=== PATIENT | male | born 1965 | race Caucasian/White ===

== ENCOUNTER 2020-05-10 17:57 | Inpatient (IN) | payer BC ==
[~2020-05-10] VITALS: Ht 177.8 cm; Wt 100.2 kg
[2020-05-10] VITALS (84 sets, daily range): BP systolic 94–100; BP diastolic 59–66; PULSE 84–87; TEMP 98.4; O2SAT 89–97
[2020-05-10] MEDS ORDERED: PRINIVIL20 MG PO (18:11)
[2020-05-10] MEDS ORDERED: FLONASE NASAL S16 GM NS (18:11)
[2020-05-10] MEDS ORDERED: AFRIN 15 ML15 ML NS (18:11)
[2020-05-10] MEDS ORDERED: ZOCOR 40MG40 MG PO (18:11)
[2020-05-10] MEDS ORDERED: SINGULAIR 110 MG/TAB PO (18:12)
[2020-05-10] MEDS ORDERED: PROAIR HFA0.09 MG/AC IH (18:12)
[2020-05-10] MEDS ORDERED: FLEXERIL 1010 MG/TAB PO (18:12)
[2020-05-10] MEDS ORDERED: PRILOSEC 20MG20 MG PO (18:13)
[2020-05-10] MEDS ORDERED: COSOPT 2%-0.5%10 ML OU (18:13)
[2020-05-10] MEDS ORDERED: VOLTAREN 75 DR75 MG PO (18:13)
[2020-05-10 18:57] LABS: COLLECTION METHOD CLEAN CATCH
[2020-05-10 19:02] LABS: BASO % 0.3 % (0.0-2.0); EOS % 0.2 % (0-4.0); GRAN # 5.6 (1.4-6.5); GRAN % 89.3 % (42.2-75.2); HEMATOCRIT 41.3 % (42.0-52.0); HEMOGLOBIN 14.1 g/dl (13.5-18.0); LYMPH # 0.4 (1.2-3.4); MEAN CELL VOLUME 83 fl (80.0-100.0); MEAN CORPUSCULAR HEMOGLOBIN 29 pg (27.0-31.0); MEAN CORPUSCULAR HGB CONC 34 g/dl (33.0-37.0); MEAN PLATELET VOLUME 9.4 fl (7.4-10.4); MONO # 0.2 (0.1-0.6); MONO % 2.9 % (1.7-9.3); PLATELET COUNT 230 K/mm3 (130-400); RED BLOOD COUNT 4.95 M/mm3 (4.20-5.60); REDCELL DISTRIBUTION WIDTH-CV 12.3 % (11.5-14.5)
[2020-05-10 19:11] LABS: MUCOUS Present /lpf; PH 5 (5-8); SQUAMOUS EPITHELIAL None Seen /hpf; URINE APPEARANCE Hazy; URINE BACTERIA None Seen /hpf; URINE BILIRUBIN Negative (NEGATIVE); URINE BLOOD Negative (NEGATIVE); URINE COLOR Yellow; URINE GLUCOSE Negative (NEGATIVE); URINE KETONE Negative (NEGATIVE); URINE LEUKOCYTE ESTERASE Negative (NEGATIVE); URINE NITRATE Negative (NEGATIVE); URINE PROTEIN(semi-quant) 1+ (NEGATIVE); URINE RBC 0-2 /hpf
[2020-05-10 19:14] LABS: ALBUMIN 4.4 gm/dL (3.5-5.0); BILIRUBIN,TOTAL 0.8 mg/dL (0.0-1.0); CALCIUM 9.2 mg/dL (8.4-10.2); CREATININE, serum 1.41 (0.66-1.25); POTASSIUM 3.7 mmol/L (3.4-5.0); TOTAL PROTEIN 8.4 gm/dL (6.4-8.2)
[2020-05-10 20:27] LABS: INR 1.2 (0.8-3.0); PROTHROMBIN TIME 13.5 SECONDS (9.7-12.8)
[2020-05-10 22:54] LABS: ARTERIAL BLD GAS O2 SATURATION 95.7 % (92-100); ARTERIAL BLD GAS TCO2 CT 20.7; ARTERIAL BLOOD GAS BASE EXCESS -3.9 (-2-2); ARTERIAL BLOOD GAS HCO3 19.7 meq/L (22-26); ARTERIAL BLOOD GAS PO2 76.1 mmHg (80-100); ARTERIAL BLOOD GAS pH 7.41 (7.35-7.45)
[2020-05-11] VITALS (688 sets, daily range): BP systolic 90–137; BP diastolic 58–81; PULSE 67–104; TEMP 98.1–101.6; O2SAT 84–98
--- NOTE | 2020-05-11 | NUR ---
PATIENT COMPLAINS OF RIGHT SHOULDER PAIN, AND BURNING NEAR IV SITE, POTASSIUM STOPPED FOR 20 MINUTES AND RESTARTED AT A SLOWER RATE PAIN MEDS ADMINISTERED
--- NOTE | 2020-05-11 04:08 | NUR ---
PATIENT ASLEEP AWAKENS EASILY TO EXTRENAL STIMULI, LIKE FOOTSTEPS IN ROOM, DENIES DISCOMFORT AND PROMPTLY BACK TO SLEEP
[2020-05-11 05:28] LABS: BASO % 0.3 % (0.0-2.0); EOS % 0.2 % (0-4.0); GRAN # 5.6 (1.4-6.5); GRAN % 84.9 % (42.2-75.2); LYMPH # 0.5 (1.2-3.4); LYMPH % 7.2 % (20.0-51.0); MEAN CELL VOLUME 84 fl (80.0-100.0); MEAN CORPUSCULAR HGB CONC 33 g/dl (33.0-37.0); MEAN PLATELET VOLUME 9.1 fl (7.4-10.4); MONO # 0.5 (0.1-0.6); MONO % 6.9 % (1.7-9.3); PLATELET COUNT 182 K/mm3 (130-400); RED BLOOD COUNT 4.34 M/mm3 (4.20-5.60); REDCELL DISTRIBUTION WIDTH-CV 12.5 % (11.5-14.5)
[2020-05-11 05:35] LABS: HEMOGLOBIN 12.1 g/dl (13.5-18.0); MEAN CORPUSCULAR HEMOGLOBIN 28 pg (27.0-31.0)
[2020-05-11 05:36] LABS: HEMATOCRIT 36.5 % (42.0-52.0)
[2020-05-11 05:37] LABS: ALBUMIN 3.5 gm/dL (3.5-5.0); BILIRUBIN,TOTAL 0.9 mg/dL (0.0-1.0); CALCIUM 8.2 mg/dL (8.4-10.2); CREATININE, serum 1.03 (0.66-1.25); POTASSIUM 4.1 mmol/L (3.4-5.0); TOTAL PROTEIN 6.9 gm/dL (6.4-8.2)
[2020-05-11 05:49] LABS: TROPONIN-I 0.014 ng/mL (0.000-0.035)
--- NOTE | 2020-05-11 13:38 | NUR ---
Plan: To return home with Abena . Assessment: SW met with patient with permission to speak in front of spouse about care. Patient reports that they reside in [facility]. Patient reprots that he uses and inhaler only and denies any other DME. Terry reports that they do not have any POA ppw. Terry reports that his PCP is Dr. Beltran. Patient is able to drive, but will transport. Patient denies having any care concerns at this time. Action: No additional concerns identified at this time. Educated on supports and services available to them.
--- NOTE | 2020-05-11 15:38 | NUR ---
Hand-off report called to KARLA Person.
--- NOTE | 2020-05-11 15:55 | NUR ---
PT transported to medical floor via wheelchair. PT able to ambulate to wheelchair with steady gait. PT tranferred from wheelchair to bed without complicataion. KARLA Person assumed care of PT at this time.
--- NOTE | 2020-05-11 16:22 | NUR ---
Pt arrived to the floor at this time. Reports a mild headache that worsens with a cough. PRN tylenol provided for this. Lung sounds are clear, bowel sounds are present. radial and distal pulses and easily palpable. Patients is currently at the bedside. He is now settled into bed and comforable. Denies SOB or chest pain at this time, states that he "just feels stiff and sore". Pt was also cold, warm blanket was provided. No other needs were expressed at this time. Call light is in reach.
--- NOTE | 2020-05-11 20:00 | NUR ---
Initial shift assessment done- VSS, temp 99.3, denies chest pain, denies SOB, does have productive sounding cough,,will call respiratory therapy to bring up an IS as previously ordered, states has a headache /-requesting tylenol,,given at this time. Tele on. Iv fluids of NS at 75cc/hr
[2020-05-12] VITALS (9 sets, daily range): BP systolic 120–135; BP diastolic 72–90; PULSE 76–91; TEMP 98.4–99.2
--- NOTE | 2020-05-12 00:45 | NUR ---
States has a throbbing H/A of 02/22- will give Tylenol as ordered, temp 99.1-VSS, o2 sat RA 97%
--- NOTE | 2020-05-12 06:00 | NUR ---
Did get a couple hours of sleep- states headache is gone at this time--does say that he has been hot/cold all night-- denies chest pain,,VSS, highest temp during this shift 99.3
[2020-05-12 07:07] LABS: BASO % 0.8 % (0.0-2.0); EOS # 0.1 (0.0-0.7); EOS % 1.4 % (0-4.0); GRAN # 3.1 (1.4-6.5); GRAN % 63.8 % (42.2-75.2); HEMATOCRIT 38.1 % (42.0-52.0); HEMOGLOBIN 12.3 g/dl (13.5-18.0); LYMPH # 1.1 (1.2-3.4); LYMPH % 22.4 % (20.0-51.0); MEAN CELL VOLUME 86 fl (80.0-100.0); MEAN CORPUSCULAR HEMOGLOBIN 28 pg (27.0-31.0); MEAN CORPUSCULAR HGB CONC 32 g/dl (33.0-37.0); MEAN PLATELET VOLUME 9.9 fl (7.4-10.4); MONO # 0.6 (0.1-0.6); MONO % 11.2 % (1.7-9.3); PLATELET COUNT 189 K/mm3 (130-400); RED BLOOD COUNT 4.41 M/mm3 (4.20-5.60); REDCELL DISTRIBUTION WIDTH-CV 12.6 % (11.5-14.5)
[2020-05-12 07:16] LABS: ALBUMIN 3.7 gm/dL (3.5-5.0); BILIRUBIN,TOTAL 0.6 mg/dL (0.0-1.0); CALCIUM 8.7 mg/dL (8.4-10.2); CREATININE, serum 0.99 (0.66-1.25); POTASSIUM 4.1 mmol/L (3.4-5.0); TOTAL PROTEIN 7.2 gm/dL (6.4-8.2)
--- NOTE | 2020-05-12 07:49 | NUR ---
PATIENT ASSESSMENT COMPLETED. HE IS SWEATY FROM LAYING IN BED. NO FEVER AT THIS TIME BUT DOES HAVE TYLENOL ON BOARD FOR HEADACHES. MRI WILL BE UP TO GET THIS PATIENT TOR PROCEDURE. NO FURTHER QUESTIONS AT THIS TIME.
--- NOTE | 2020-05-12 08:47 | NUR ---
PATIENT TO MRI
--- NOTE | 2020-05-12 14:37 | NUR ---
PATIENT REPORTS SITTING IN THE CHAIR AND BECAME DIZZY AND SWEATY. AT SIDE HE WAS ABLE TO GET TO BED ON HIS OWN. DENIES PAIN. DOES HAVE A CRAP TO THE RIGHT HAND INBETWEEN THUMB AND 2ND DIGIT. VITALS STABLE
--- NOTE | 2020-05-12 18:36 | NUR ---
patient complains of headache. prn tylenol given
--- NOTE | 2020-05-12 19:17 | NUR ---
Resting in bed. Lungs clear. Heart sounds normal. Bowels active x4. Pulses strong throughout. No edema noted. INT right AC without complications. Reports headache 3/10 currently. VS taken and stable. Denies other needs at this time. Call light in reach.
--- NOTE | 2020-05-12 22:00 | NUR ---
Resting in recliner. Denies needs. Call light in reach.
--- NOTE | 2020-05-12 23:43 | NUR ---
Resting in bed. Denies needs. Denies pain. Call light in reach.
[2020-05-13 05:00] VITALS: BP 122/79; PULSE 80; TEMP 98.9
--- NOTE | 2020-05-13 06:07 | NUR ---
Reports 01/22 headached. Provided patient with PRN tylenol at this time.
--- NOTE | 2020-05-13 06:14 | NUR ---
Patient received x2 doses of tylenol for headache throughout night. Otherwise uneventful night. Resting in bed this Am. Call light in reach.
--- NOTE | 2020-05-13 07:00 | NUR ---
Report received from KARLA Bhatt. PT in bed resting, denies needs, will continue ot monitor.
[2020-05-13 07:05] LABS: BASO % 0.4 % (0.0-2.0); EOS # 0.1 (0.0-0.7); EOS % 2.4 % (0-4.0); GRAN # 2.8 (1.4-6.5); GRAN % 55.6 % (42.2-75.2); HEMATOCRIT 41.2 % (42.0-52.0); HEMOGLOBIN 13.8 g/dl (13.5-18.0); LYMPH # 1.4 (1.2-3.4); LYMPH % 26.9 % (20.0-51.0); MEAN CELL VOLUME 85 fl (80.0-100.0); MEAN CORPUSCULAR HEMOGLOBIN 29 pg (27.0-31.0); MEAN CORPUSCULAR HGB CONC 34 g/dl (33.0-37.0); MEAN PLATELET VOLUME 9.5 fl (7.4-10.4); MONO # 0.7 (0.1-0.6); MONO % 14.3 % (1.7-9.3); PLATELET COUNT 238 K/mm3 (130-400); RED BLOOD COUNT 4.84 M/mm3 (4.20-5.60); REDCELL DISTRIBUTION WIDTH-CV 12.5 % (11.5-14.5)
[2020-05-13 07:12] LABS: ALBUMIN 4.1 gm/dL (3.5-5.0); BILIRUBIN,TOTAL 0.6 mg/dL (0.0-1.0); CALCIUM 9.4 mg/dL (8.4-10.2); CREATININE, serum 1.04 (0.66-1.25); POTASSIUM 4.1 mmol/L (3.4-5.0); TOTAL PROTEIN 8.1 gm/dL (6.4-8.2)
--- NOTE | 2020-05-13 07:31 | NUR ---
Report given to KARLA Hahn
[2020-05-13 07:47] VITALS: BP 131/92; PULSE 77; TEMP 98.2
--- NOTE | 2020-05-13 09:41 | NUR ---
Assessment charted Pt feeling well, deneis any pain. anticipating discharge. orientedx4, ambulating ad cherelle. will continue to monitor.
--- NOTE | 2020-05-13 10:39 | NUR ---
First visit from the performance analyst. No needs right now.
[2020-05-13] MEDS ORDERED: ASPIRIN E.C. 8181 MG PO (12:28)
[2020-05-13] MEDS ORDERED: OMNICEF 300MG300 MG PO (12:28)
--- NOTE | 2020-05-13 16:01 | NUR ---
Pt discharged at this time, IV dc'd, tip intact. Tameka discharge packet, scripts, f/u appointments. Pt escorted out by myself with . Left with all belongings, to drive home, criteria met.
[2020-05-14 17:36] LABS: CK total - for Isoenzymes 194 U/L (39 - 308)
== END 2020-05-13 15:45 | disposition home or self-care (01) | DRG 872 ==
LOC: COL.ER 17:57 → MEDICAL 19:54 → ICU 19:54 → MEDICAL 05-11 15:55
PROVIDERS: Emergency Medicine; Nurse Practitioner Family; Physician Assistant; ADMIT Hospitalist
DX: A41.9 Sepsis, unspecified organism (principal); N17.9 Acute kidney failure, unspecified; E87.1 Hypo-osmolality and hyponatremia; J98.11 Atelectasis; R65.20 Severe sepsis without septic shock; E87.6 Hypokalemia; I10 Essential (primary) hypertension; R73.9 Hyperglycemia, unspecified; E78.5 Hyperlipidemia, unspecified; H40.9 Unspecified glaucoma; J45.909 Unspecified asthma, uncomplicated; E86.0 Dehydration; T67.5XXA Heat exhaustion, unspecified, initial encounter; R07.89 Other chest pain; R68.84 Jaw pain; F41.0 Panic disorder [episodic paroxysmal anxiety]; Z20.828 Contact with and (suspected) exposure to other viral communicable diseases
CPT/HCPCS: 99223-AI; 99232-AI; 99233-AI; 99239; A9284; A9585; J0456; J0696; J1644; J1885; J2270; J2543; J3480; J7030; J7050; Q9967